=== PATIENT | female | born 2000 | race Caucasian/White ===

== ENCOUNTER 2021-12-05 12:15 | Inpatient (IN) | payer OTHER, SELFPAY ==
[2021-12-05 12:56] VITALS: BMI 18.3
[2021-12-05 14:00] VITALS: BP 91/60; PULSE 78; RESP 18; TEMP 36.6; O2SAT 97
[2021-12-05] MEDS: lithium carbonate 300 mg Capsule PO (14:51)
[2021-12-05] MEDS: multivitamin therapeutic Tablet 1 TAB PO (14:51)
[2021-12-05] MEDS: folic acid 1 mg Tablet PO (14:52)
[2021-12-05] MEDS: thiamine 100 mg Tablet PO (14:52)
[2021-12-05] MEDS: sertraline 50 mg Tablet PO (14:52)
[2021-12-05] MEDS: BuSPIRONE 10 mg Tablet PO ×2 (15:03→21:41)
[2021-12-05] MEDS: trazodone 50 mg Tablet PO (21:41)
[2021-12-05 22:00] VITALS: BP 98/63; PULSE 73; RESP 12; TEMP 37.2; O2SAT 99
--- NOTE | 2021-12-06 02:29 | PC.NURSE ---
2141 Patient asked for something to help her sleep. Trazadone 50mg po was given. This was effective as the patient has rested quietly up to this point.
[2021-12-06 06:00] VITALS: BP 112/71; PULSE 90; RESP 20; TEMP 36.8; O2SAT 97
[2021-12-06] MEDS: BuSPIRONE 10 mg Tablet PO ×2 (10:09→20:03)
[2021-12-06] MEDS: sertraline 50 mg Tablet PO (10:10)
[2021-12-06] MEDS: multivitamin therapeutic Tablet 1 TAB PO (10:10)
[2021-12-06] MEDS: folic acid 1 mg Tablet PO (10:10)
[2021-12-06] MEDS: thiamine 100 mg Tablet PO (10:10)
--- NOTE | 2021-12-06 11:04 | W.PM.NPUH&PS ---
Providers/Chief Complaint Admitting Physician: Tim Yuan MD Chief Complaint: suicidal thoughts HPI NPU History of Present Illness Pepe Rankin is a 21 year old female who presented to an outside hospital reporting suicidality, depression, and anxiety. She was transferred to [facility] and was admitted to the neuropsychiatric unit for definitive treatment of those issues. She presents today reporting that she has been hospitalized twice before, once in 2017 and once in February 2021. She reports that she had outpatient services in [place], [place], and she has been on different medications but reports she has never given them enough time to be effective. She reports she smokes about half a pack of cigarettes a day. She reports she drinks alcohol every other day, but reports it is generally just a couple of drinks/beer. She denies marijuana or any other illicit drug use. She has never been to a drug rehabilitation and never had a DUI. She reports that her mental health issues started around age 15; she reports she started having depression a lot, mostly related to school and a little bit from home, but mostly school. She reports that she has had probably two suicide attempts and has some history of self-injurious behavior. She reports that when she left her hospitalization in 2017, she was on medication and started feeling better. She reports that she did go to treatment but stopped taking medications and stopped going when she felt better. She reports that since her February hospitalization, however, she has been struggling for this past eight to ten months. We discussed the risks, benefits, and alternatives of starting Prozac, and she understood and agreed to proceed as is documented in this note. PSYCHIATRIC HISTORY: As above. SUBSTANCE ABUSE HISTORY: As above. FAMILY HISTORY: She denies any mental health or addiction issues in her family. She denies any suicide attempts or completions in her family. DEVELOPMENTAL HISTORY: The patient denies any issues with her mother?s or delivery of her. She learned to walk and talk and met all developmental milestones on time. The patient denies speech therapy, learning support, emotional support, or special education classes. PSYCHOSOCIAL HISTORY: She reports that she and her twin sister are the only products of her parents union; her mother has a daughter who is her younger half sister, and her father has two sons and a daughter who are her youngest half-siblings. She reports that her childhood was normal, and she denies any emotional, physical, or sexual abuse. She denies any history of significant traumas. 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 She endorses being heterosexual with her longest relationship being three years. She reports that she has been one time and is in the process of getting a divorce, which is part of the challenge of right now. She reports that she has a 2-year-old daughter. She has never been in the . She denies any pentecostalism belief system. She reports that her longest employment was three years at [employer]. She lives in a house with her mom, jono, and her daughter. LEGAL HISTORY: Denied. MEDICAL HISTORY: She reports that she has had one with the one delivery of her [id number] daughter, by , because she was too small to support the baby coming through. She reports she has been having her period since she was [age] years old and denies any problematic nature to them. Meds NPU Home Medications Medication Instructions Recorded Confirmed Last Taken Type buspirone 5 mg tablet 5 mg PO TID 12/05/21 12/05/21 Unknown History lithium carbonate 300 mg tablet 300 mg PO BID 12/05/21 12/05/21 Unknown History sertraline 25 mg tablet 25 mg PO DAILY 12/05/21 12/05/21 Unknown History Allergies Allergy/AdvReac Type Severity Reaction Status Date / Time No Known Allergies Allergy Verified 12/05/21 22:02 Mental Status Exam MSE Comments: This is a well-nourished, well-developed, white female, with a noticeable nose ring and with hospital scrubs on, with limited grooming and adequate eye contact. No abnormal movements, except for significant psychomotor retardation. Cooperative with exam in mild distress. Speech was decreased rate and volume, and somewhat mousy and hard to hear. Mood described as ?a little better today and hopeful?; affect subdued and shy/guarded. Thought process, organized. Thought content: patient denied any suicidal or homicidal ideation, there were no delusions reported or noted, patient denied any auditory or visual hallucinations. Attention, concentration, and memory appear intact but none were formally tested. She is alert and oriented times three. Insight and judgment appear fair. Impulse control appears fair. Vitals/I&O/Wt Last Vital Signs Temp 98.3 F 12/06/21 06:00 Pulse 90 12/06/21 06:00 Resp 20 H 12/06/21 06:00 BP 112/71 12/06/21 06:00 Pulse Ox 97 12/06/21 06:00 Weight last 48 hrs Weight 45.586 kg A&P Assessment and plan (1) Major depressive disorder, recurrent: Status: Acute (2) Partner relational problem: Status: Acute (3) Anxiety: Status: Acute (4) Suicidal thoughts: Status: Acute Plan This is a 21-year-old, white female, with a reported six year history of depression and mental health issues, with recent psychosocial challenges of dealing with divorce and depression, who presents feeling like she needs to get restarted on medications to be well. 1. Continue current medication. Will start Prozac 20 mg po qam and explore possible addition of other medications as indicated. 2. Encourage individual, group, and milieu therapy. 3. Continue q-15 minute checks for safety. 4. Recommend sober living treatment at the highest level of care to which the patient is willing to commit. There is some concern about underreporting of alcohol use but will monitor this issue. Involuntary Hold Information 96 Hour Hold: 96 Hour Involuntary Admission: Yes Attestations NPU Medical Necessity Statement*: Inpatient hospitalization is medically necessary and the clinically appropriate intervention, at this time. We will monitor medications and make changes as indicated. Patient will be in the hospital for over two midnights. Likely length of stay is three to five days. Coding Level of Care Code Acute Auto Body Shop Manager for Anand Fwdonte Diagnoses Major depressive disorder, recurrent F33.9 Partner relational problem Z63.0 Anxiety F41.9 Suicidal thoughts R45.854
[2021-12-06 14:00] VITALS: BP 94/59; PULSE 64; RESP 17; TEMP 36.3; O2SAT 97
[2021-12-06] MEDS: trazodone 50 mg Tablet PO (20:03)
[2021-12-06] MEDS: fluoxetine 20 mg Capsule PO (20:03)
[2021-12-06 20:47] VITALS: BP 95/60; PULSE 72; RESP 17; TEMP 36.8; O2SAT 96
[2021-12-07 06:00] VITALS: BP 105/67; PULSE 65; RESP 16; O2SAT 97
[2021-12-07] MEDS: multivitamin therapeutic Tablet 1 TAB PO (10:46)
[2021-12-07] MEDS: thiamine 100 mg Tablet PO (10:46)
[2021-12-07] MEDS: sertraline 50 mg Tablet PO (10:46)
[2021-12-07] MEDS: fluoxetine 20 mg Capsule PO (10:46)
[2021-12-07] MEDS: folic acid 1 mg Tablet PO (10:46)
[2021-12-07] MEDS: BuSPIRONE 10 mg Tablet PO ×2 (10:47→20:21)
[2021-12-07 14:00] VITALS: BP 96/57; PULSE 68; RESP 17; TEMP 36.6; O2SAT 100
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
[2021-12-07 21:35] VITALS: BP 105/65; PULSE 70; RESP 16; TEMP 36.9; O2SAT 99
[2021-12-08 06:00] VITALS: BP 101/60; PULSE 73; RESP 16; TEMP 36.6; O2SAT 97
[2021-12-08] MEDS: fluoxetine 20 mg Capsule PO (09:19)
[2021-12-08] MEDS: multivitamin therapeutic Tablet 1 TAB PO (09:19)
[2021-12-08] MEDS: folic acid 1 mg Tablet PO (09:19)
[2021-12-08] MEDS: sertraline 50 mg Tablet PO (09:19)
[2021-12-08] MEDS: thiamine 100 mg Tablet PO (09:19)
[2021-12-08] MEDS: BuSPIRONE 10 mg Tablet PO (11:14)
--- NOTE | 2021-12-08 12:50 | P.NPUDS_ITS ---
Diagnoses at Discharge Discharge Diagnosis (1) Suicidal thoughts: Status: Resolved (2) Anxiety: Status: Acute (3) Partner relational problem: Status: Acute (4) Major depressive disorder, recurrent: Status: Acute (5) Adjustment disorder with mixed disturbance of emotions and conduct: Status: Acute Reason for Visit Reason for Visit: suicidal thoughts Brief History: History of Present Illness Pepe Rankin is a 21 year old female who presented to an outside hospital reporting suicidality, depression, and anxiety. She was transferred to [facility] and was admitted to the neuropsychiatric unit for definitive treatment of those issues. She presents today reporting that she has been hospitalized twice before, once in 2017 and once in February 2021. She reports that she had outpatient services in [place], [place], and she has been on different medications but reports she has never given them enough time to be effective. She reports she smokes about half a pack of cigarettes a day. She reports she drinks alcohol every other day, but reports it is generally just a couple of drinks/beer. She denies marijuana or any other illicit drug use. She has never been to a drug rehabilitation and never had a DUI. She reports that her mental health issues started around age 15; she reports she started having depression a lot, mostly related to school and a little bit from home, but mostly school. She reports that she has had probably two suicide attempts and has some history of self-injurious behavior. She reports that when she left her hospitalization in 2017, she was on medication and started feeling better. She reports that she did go to treatment but stopped taking medications and stopped going when she felt better. She reports that since her February hospitalization, however, she has been struggling for this past eight to ten months. We discussed the risks, benefits, and alternatives of starting Prozac, and she understood and agreed to proceed as is documented in this note. PSYCHIATRIC HISTORY: As above. SUBSTANCE ABUSE HISTORY: As above.? FAMILY HISTORY: She denies any mental health or addiction issues in her family. She denies any suicide attempts or completions in her family. DEVELOPMENTAL HISTORY: The patient denies any issues with her mother?s or delivery of her. She learned to walk and talk and met all developmental milestones on time. The patient denies speech therapy, learning support, emotional support, or special education classes. PSYCHOSOCIAL HISTORY: She reports that she and her twin sister are the only products of her parents union; her mother has a daughter who is her younger half sister, and her father has two sons and a daughter who are her youngest half-siblings. She reports that her childhood was normal, and she denies any emotional, physical, or sexual abuse. She denies any history of significant traumas. 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 She endorses being heterosexual with her longest relationship being three years. She reports that she has been one time and is in the process of getting a divorce, which is part of the challenge of right now. She reports that she has a 2-year-old daughter. She has never been in the . She denies any rastafarian belief system. She reports that her longest employment was three years at [employer]. She lives in a house with her mom, jono, and her daughter. LEGAL HISTORY: Denied. MEDICAL HISTORY: She reports that she has had one with the one delivery of her [id number] daughter, by , because she was too small to support the baby coming through. She reports she has been having her period since she was [age] years old and denies any problematic nature to them. Hospital Course Hospital Course She slowly acclimated to the individual, group and milieu therapies provided. She was open to initiating Prozac 20 mg p.o. every morning and increasing her BuSpar. She endorsed feeling better and had significant improvement. She was able to work with the treatment team on appropriate referrals for aftercare. She was able to contract for safety outside the hospital prior to discharge. At the outside hospital, patient had routine laboratory studies which were within normal limits except for few outliers. Additionally there was a general medical evaluation which was also within normal limits and revealed no new acute processes. Discharge Summary: At the time of discharge, she denied psychosis or lethality. Mood and anxiety were well managed. Patient endorsed a plan to avoid all drugs of abuse and follow-up with the aftercare recommendations of the treatment team. Patient was evaluated and deemed to be absent credible lethality, and had achieved the maximum benefit from an inpatient hospitalization, so was discharged. Involuntary Hold Information 96 Hour Hold: 96 Hour Involuntary Admission: Yes Mental Status Exam MSE Comments: This is a slender versus underweight, white female, with a noticeable nose ring and with hospital scrubs on, with limited grooming and adequate eye contact. No abnormal movements, except for psychomotor retardation. Cooperative with exam in no acute distress. Speech was decreased rate and volume, and somewhat mousy and hard to hear. Mood described as better; affect subdued and shy/guarded but she reports that she is a really shy person.? Thought process, organized. Thought content: patient denied any suicidal or homicidal ideation, there were no delusions reported or noted, patient denied any auditory or visual hallucinations. Attention, concentration, and memory appear intact but none were formally tested. She is alert and oriented times three. Insight and judgment appear fair. Impulse control appears fair. Discharge Data Vitals: Last Vital Signs Temp 97.9 F 12/08/21 06:00 Pulse 73 12/08/21 06:00 Resp 16 12/08/21 06:00 BP 101/60 12/08/21 06:00 Pulse Ox 97 12/08/21 06:00 Discharge Plan Discharge Patient Disposition: Home Condition: Stable Prescriptions: New fluoxetine 20 mg Capsule 20 mg PO DAILY 30 Days Qty: 30 1RF Vitamin B-1 (mononitrate) 100 mg Tablet 100 mg PO DAILY 30 Days Qty: 30 1RF Changed buspirone 5 mg tablet 10 mg PO BID 30 Days Qty: 120 1RF Discontinued lithium carbonate 300 mg tablet 300 mg PO BID 0RF sertraline 25 mg tablet 25 mg PO DAILY 0RF Discharge Orders: Discharge Order (Routine); Ordered 12/08/21 Ordered By: Tim Yuan Referrals: [facility] [Other] Discharge Diet: Regular Discharge Activity: Resume usual activity Patient Instructions: Fluoxetine (By mouth), Suicide Prevention (DC), Opioid Safety Discharge Attestations NPU Time Spent in Discharge Care*: less than 30 min Specific Discharge Activities: Specific discharge activities: educating patient, discussing with caser up/social workers/dc planners, documenting/other paperwork and evaluating patient/reviewing data Coding Level of Care Code Acute Chg FW DC note Diagnoses Suicidal thoughts R45.851 Anxiety F41.9 Partner relational problem Z63.0 Major depressive disorder, recurrent F33.9 Adjustment disorder with mixed disturbance of emotions and conduct F43.25
[2021-12-08 13:44] VITALS: BP 101/60; PULSE 73; RESP 16; TEMP 36.6; O2SAT 97
== END 2021-12-08 15:47 | disposition home or self-care (01) | DRG 885 ==
PROVIDERS: Admitting Provider Psychiatry & Neurology Psychiatry; Visit Provider Psychiatry & Neurology Psychiatry
DX: F33.9 Major depressive disorder, recurrent, unspecified (principal); R45.851 Suicidal ideations; F43.25 Adjustment disorder with mixed disturbance of emotions and conduct; Z63.0 Problems in relationship with spouse or partner; F41.9 Anxiety disorder, unspecified; F17.210 Nicotine dependence, cigarettes, uncomplicated; Z91.51 Personal history of suicidal behavior; Z91.52 Personal history of nonsuicidal self-harm
CPT/HCPCS: 97165